=== PATIENT | male | born 1960 | race Caucasian/White ===

== ENCOUNTER → 2017-04-04 | Outpatient (CLI) | payer OTHER ==
[2015-09-17 17:45] VITALS: BP 164/93
[~2017-04-04] MED LIST: BUPIVACAINE MPF 0.5% 30 ML VIAL. ONE; LOSA1TAB12 PO; METF500T4 PO; MULTIVITAMIN PACK
== END | disposition home or self-care (01) ==
LOC: SURG 13:54
PROVIDERS: ATTEND Anesthesiology
DX: M79.1 Myalgia (principal); E11.9 Type 2 diabetes mellitus without complications; Z72.89 Other problems related to lifestyle; Z88.1 Allergy status to other antibiotic agents
CPT/HCPCS: 20553; 82947; J3490

== ENCOUNTER → 2017-04-11 | Outpatient (CLI) | payer OTHER ==
[2015-09-17 17:45] VITALS: BP 164/93
[~2017-04-11] MED LIST changes: -BUPIVACAINE MPF 0.5% 30 ML VIAL. ONE
--- NOTE | 2017-04-11 16:02 | RAD ---
CT of the thoracic spine without contrast, 04/11/2017: History: Left arm and leg radiculopathy Noncontrast scans were obtained with multiplanar reconstructions produced. There are mild scattered Schmorl's nodes in the lower thoracic spine. There are mild scattered marginal spurs. There are mild degenerative changes involving scattered facet joints in the lower thoracic spine. No fracture or destructive bony lesion is seen. Many of the posterior disc margins are not clearly defined. There is mild posterior disc protrusion just left of midline at what appears to be the T7-8 level. No high-grade central spinal stenosis or foraminal encroachment is evident at this level or other levels in the thoracic spine. The paraspinous soft tissues are unremarkable. IMPRESSION: Normal 1. Mild scattered degenerative changes. 2. Small posterior disc protrusion on the left at T7-8. 3. No acute thoracic spine abnormality is detected. CT of the lumbar spine without contrast, 04/11/2017: Noncontrast scans were obtained with multiplanar reconstructions produced. No fracture or destructive bony lesion is seen. At L1-2 and L2-3 there is no significant posterior disc bulge or protrusion. There are minimal degenerative changes involving the facet joints. The neural foramina are well maintained. At L3-4 there is only slight posterior annular bulging. There are minimal degenerative changes involving the facet joints. The central spinal canal and neural foramina are well maintained. At L4-5 there is moderate broad-based posterior disc bulging. There is mild posterior ligamentous thickening due to mild facet joint arthropathy. The combination of findings is causing borderline narrowing of the central spinal canal in a triangle configuration. There is mild inferior foraminal narrowing bilaterally. At L5-S1 there is a vacuum disc phenomena. There is a small posterior disc herniation on the left with inferior extension of this disc fragment. This effaces the anterior epidural fat along the anterior aspect of the thecal sac and the left S1 nerve root sleeve. There are mild degenerative changes involving the facet joints. The neural foramina are well maintained. Mild aortic calcific plaquing is noted. IMPRESSION: 1. Mild disc degeneration at L5-S1 with a small posterior disc herniation on the left. 2. Moderate posterior disc bulging at L4-5 in conjunction with mild facet joint arthropathy is causing borderline central spinal stenosis at that level. PQRS Compliance Statement: One or more of the following individualized dose reduction techniques were utilized for this examination: 1. Automated exposure control 2. Adjustment of the mA and/or kV according to patient size 3. Use of iterative reconstruction technique
== END | disposition home or self-care (01) ==
LOC: CT 09:37
PROVIDERS: ATTEND Anesthesiology Pain Medicine
DX: M51.14 Intervertebral disc disorders with radiculopathy, thoracic region (principal); M47.24 Other spondylosis with radiculopathy, thoracic region; M51.16 Intervertebral disc disorders with radiculopathy, lumbar region; M47.26 Other spondylosis with radiculopathy, lumbar region; M51.44 Schmorl's nodes, thoracic region; M12.88 Other specific arthropathies, not elsewhere classified, other specified site; M53.84 Other specified dorsopathies, thoracic region; I70.0 Atherosclerosis of aorta; Z87.891 Personal history of nicotine dependence
CPT/HCPCS: 72128; 72131

== ENCOUNTER → 2017-08-16 | Outpatient (CLI) | payer OTHER ==
[2015-09-17 17:45] VITALS: BP 164/93
[~2017-08-16] MED LIST changes: +IOHEXOL 300 MG/ML 75 ML VIAL. IV ONE
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
--- NOTE | 2017-08-16 10:27 | RAD ---
CT cervical spine without contrast 08/16/2017 Indication: Chronic neck pain. Comparison: None available. Technique: Multiple axial CT images of the cervical spine were obtained without intravenous contrast. Coronal and sagittal reformats are provided. Findings: There is reversal of the normal cervical lordosis. No significant spondylolisthesis is visualized. There is no acute fracture identified. The skull base is intact. Mastoid air cells are well aerated. Post surgical changes are identified involving the right parotid bed and right temporal mandibular joint. The atlantoaxial articulation is normal. Craniocervical junction is normal. C2-C3: Disc is normal in configuration. There is mild facet arthropathy. There is no uncovertebral joint disease. No neuroforaminal or spinal canal stenosis. C3-C4: There is minimal posterior disc osteophyte complex. There is mild to moderate facet arthropathy. Mild uncovertebral joint disease. Mild right neural foraminal stenosis. No spinal canal stenosis. C4-C5: The disc is normal in configuration. There is mild facet arthropathy. There is no uncovertebral joint disease. No neuroforaminal or spinal canal stenosis. C5-C6: There is minimal posterior disc osteophyte complex. There is moderate left and mild right facet arthropathy. There is mild uncovertebral joint disease. Mild left neuroforaminal stenosis. No spinal canal stenosis. C6-C7: There is minimal posterior disc bulge. There is mild to moderate facet arthropathy. No uncovertebral joint disease. No neural foraminal or spinal canal stenosis. C7-T1: Disc is normal in configuration. There is mild facet arthropathy. There is no uncovertebral joint disease. No neuroforaminal or spinal canal stenosis. Impression: Mild degenerative changes of the cervical spine are present, as detailed above. PQRS Compliance Statement: One or more of the following individualized dose reduction techniques were utilized for this examination: 1. Automated exposure control 2. Adjustment of the mA and/or kV according to patient size 3. Use of iterative reconstruction technique
--- NOTE | 2017-08-16 10:32 | RAD ---
CT left shoulder without contrast 08/16/2017 Indication: Left shoulder pain with decreased range of motion. Comparison: None available. Technique: Multiple axial CT images of the left shoulder are provided with contrast contrast. Coronal and sagittal reformats are provided. Findings: There is no acute fracture or dislocation. Left acromioclavicular joint is normal in appearance. The left glenohumeral joint is normal without significant joint space narrowing. No significant marginal osteophytosis. Bone mineralization is within normal limits. There is no significant muscle atrophy. There is no significant joint effusion. Evaluation of the tendons is limited by CT. However, no definite retracted tendon tear is visualized. There is no significant soft tissue abnormality. No mass is identified. No left axillary lymphadenopathy. Visualized portions of the left lung appear clear. Impression: No acute fracture or dislocation involving the left acromioclavicular and glenohumeral joints. PQRS Compliance Statement: One or more of the following individualized dose reduction techniques were utilized for this examination: 1. Automated exposure control 2. Adjustment of the mA and/or kV according to patient size 3. Use of iterative reconstruction technique
== END | disposition home or self-care (01) ==
LOC: CT 08:19
PROVIDERS: ATTEND Physician Assistant
DX: M47.892 Other spondylosis, cervical region (principal); M25.512 Pain in left shoulder; C07 Malignant neoplasm of parotid gland; R22.1 Localized swelling, mass and lump, neck; Z87.891 Personal history of nicotine dependence
CPT/HCPCS: 70491; 72125; 73200; Q9967

== ENCOUNTER → 2018-03-28 | Outpatient (CLI) | payer OTHER ==
[2015-09-17 17:45] VITALS: BP 164/93
[~2018-03-28] MED LIST changes: -IOHEXOL 300 MG/ML 75 ML VIAL. IV ONE; +METF500T16 PO; -METF500T4 PO
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
== END | disposition home or self-care (01) ==
LOC: CT 14:26
PROVIDERS: ATTEND Family Medicine
DX: R42 Dizziness and giddiness (principal); E11.65 Type 2 diabetes mellitus with hyperglycemia; I10 Essential (primary) hypertension; Z82.49 Family history of ischemic heart disease and other diseases of the circulatory system; Z83.3 Family history of diabetes mellitus; Z80.42 Family history of malignant neoplasm of prostate; Z79.84 Long term (current) use of oral hypoglycemic drugs
CPT/HCPCS: 70450

== ENCOUNTER 2018-05-29 16:24 | Emergency (ER) | payer OTHER ==
[~2018-05-29] VITALS: Ht 180.3 cm; Wt 83.9 kg
[2018-05-29] MEDS ORDERED: IV NORMAL SALINE 1,000ML 1,000 ML IV ONE (17:00)
--- NOTE | 2018-05-29 17:07 | PHYS DOC ---
Past History Past Medical History: Diabetes, Other Past Surgical History: Other Drug Use: Cocaine, Marijuana, Other Adult General Chief Complaint Chief Complaint: DIZZY/LIGHT HEADED HPI HPI 57-year-old male presents with dizziness that started around 1:30 PM. Patient was just sitting on the couch listening to music when this started. He describes the dizziness as a lightheaded, off balance feeling. He believes it is made worse with standing up. He denies a history of dizziness. He denies change in hearing. He is never been diagnosed with vertigo. Patient denies nausea, vomiting, chest pain, shortness of breath, dysuria, urinary frequency. The patient is diabetic. His blood sugars have been in the 300s. He is on Lantus , metformin, and Tradjenta. He is not on a short acting insulin. He has had no recent changes in his medications. He denies fevers or chills. Review of Systems Review of Systems Constitutional: Denies fever or chills [] Eyes: Denies change in visual acuity, redness, or eye pain [] HENT: Denies nasal congestion or sore throat [] Respiratory: Denies cough or shortness of breath [] Cardiovascular: No additional information not addressed in HPI [] GI: Denies abdominal pain, nausea, vomiting, bloody stools or diarrhea [] : Denies dysuria or hematuria [] Musculoskeletal: Denies back pain or joint pain [] Integument: Denies rash or skin lesions [] Neurologic: Dizziness. Denies headache, focal weakness or sensory changes. [] Endocrine: Denies polyuria or polydipsia [] All other systems were reviewed and found to be within normal limits, except as documented in this note. Current Medications Current Medications Current Medications Medications (Trade) Dose Ordered Sig/Uzma Start Time Stop Time Status Last Admin Dose Admin Sodium Chloride 1,000 ml @ 1,000 mls/hr 1X ONCE 05/29/18 17:00 05/29/18 17:59 Allergies Allergies Allergies Uncoded Allergies Type Severity Reaction Last Updated Verified Unknown antibiotic Allergy Unknown 09/17/15 Physical Exam Physical Exam Constitutional: Well developed, well nourished, no acute distress, non-toxic appearance. [] HENT: Normocephalic, atraumatic, bilateral external ears normal, oropharynx moist, no oral exudates, nose normal. [] Eyes: PERRLA, EOMI, conjunctiva normal, no discharge. [] Neck: Normal range of motion, no tenderness, supple, no stridor. [] Cardiovascular:Heart rate regular rhythm, no murmur [] Lungs & Thorax: Bilateral breath sounds clear to auscultation [] Abdomen: Bowel sounds normal, soft, no tenderness, no masses, no pulsatile masses. [] Skin: Surgical scar inferior to the right parotid gland[] Back: No tenderness, no CVA tenderness. [] Extremities: No tenderness, no cyanosis, no clubbing, ROM intact, no edema. [] Neurologic: Alert and oriented X 3, normal motor function, normal sensory function, no focal deficits noted. [] Psychologic: Affect normal, judgement normal, mood normal. [] EKG EKG Sinus rhythm, rate 74, normal axis, no ST elevations or depressions, prolonged QTC.[] Radiology/Procedures Radiology/Procedures [] Impressions: Examination: CT HEAD WO CONTRAST History: DIZZINESS Comparison/Correlation: None Findings: Axial images of the head were obtained without contrast. Mild atrophy is present. No intracranial hemorrhage, midline shift, or mass effect. Shrapnel is identified involving the right temporomandibular joint region. Impression: No intracranial hemorrhage. Electronically signed by: Abhijeet Cameron MD (05/29/2018 5:50 PM) [facility] DICTATED AND SIGNED BY: ABHIJEET CAMERON MD DATE: 05/29/18 1749 CC: ADALBERTO COVARRUBIAS DO; MONI GOMEZ MD ~ Course & Med Decision Making Course & Med Decision Making Pertinent Labs and Imaging studies reviewed. (See chart for details) Patient's labs are significant for a slightly elevated white count and a blood sugar 190. His urinalysis is pending. His head CT is unremarkable. I will treat him with 30 mg of Toradol for his headache. I am signing the patient out to Dr. Barnard at 1805. [] Dragon Disclaimer Dragon Disclaimer This electronic medical record was generated, in whole or in part, using a voice recognition dictation system. Departure Departure: Referrals: MONI GOMEZ MD (PCP) ADALBERTO COVARRUBIAS DO May 29, 2018 17:07
[2018-05-29 17:09] LABS: BASO # 0.1 x10^3/uL (0.0-0.2); BASO % 1 % (0-3); EOS % 0 % (0-3); HEMATOCRIT 47.4 % (39.0-53.0); HEMOGLOBIN 16.7 g/dL (13.0-17.5); LYMPH # 2.7 x10^3/uL (1.0-4.8); LYMPH % 21 % (24-48); MEAN CORPUSCULAR HEMOGLOBIN 31 pg (25-35); MEAN CORPUSCULAR HGB CONC 35 g/dL (31-37); MEAN CORPUSCULAR VOLUME 89 fL (79-100); MONO # 1.3 x10^3/uL (0.0-1.1); MONO % 10 % (0-9); NEUT % 69 % (31-73); PLATELET COUNT 255 x10^3/uL (140-400); RED BLOOD COUNT 5.33 x10^6/uL (4.30-5.70); RED CELL DISTRIBUTION WIDTH 13.2 % (11.5-14.5); WHITE BLOOD COUNT 13.1 x10^3/uL (4.0-11.0)
[2018-05-29 17:19] LABS: CALCIUM 9.2 mg/dL (8.5-10.1); POTASSIUM 3.4 mmol/L (3.5-5.1); TOTAL BILIRUBIN 0.6 mg/dL (0.2-1.0); TOTAL PROTEIN 7.9 g/dL (6.4-8.2)
--- NOTE | 2018-05-29 17:54 | RAD ---
Examination: CT HEAD WO CONTRAST History: DIZZINESS Comparison/Correlation: None Findings: Axial images of the head were obtained without contrast. Mild atrophy is present. No intracranial hemorrhage, midline shift, or mass effect. Shrapnel is identified involving the right temporomandibular joint region. Impression: No intracranial hemorrhage. Electronically signed by: Abhijeet Donis MD (05/29/2018 5:50 PM) [facility]
--- NOTE | 2018-05-29 17:55 | EKG ---
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
[2018-05-29] MEDS ORDERED: KETOROLAC 30 MG/ML VIAL. IV ONE (18:15)
[2018-05-29 18:43] LABS: BARBITURATES NEG (NEG); BENZODIAZEPINES NEG (NEG); CANNABINOIDS POS (NEG); COCAINE NEG (NEG); METHADONE NEG (NEG); OPIATES NEG (NEG); PHENCYCLIDINE NEG (NEG)
[2018-05-29 18:44] LABS: AMPHETAMINE/METHAMPHETAMINE NEG (NEG)
[2018-05-29 18:49] LABS: BILIRUBIN,URINE NEG (NEG); CLARITY,URINE CLEAR; COLOR,URINE STRAW; GLUCOSE,URINE 100 mg/dL (NEG)
[2018-05-29 18:50] LABS: BACTERIA,URINE 0 /HPF (0-FEW); NITRITE,URINE NEG (NEG); RBC,URINE OCC /HPF (0-2); UROBILINOGEN,URINE 0.2 mg/dL (0.2 mg/dL)
[2018-05-29 19:00] VITALS: BP 166/86
== END 2018-05-29 19:06 | disposition home or self-care (01) ==
LOC: ER 16:24
DX: R42 Dizziness and giddiness (principal); R51 Headache; D72.829 Elevated white blood cell count, unspecified; E11.9 Type 2 diabetes mellitus without complications; Z88.1 Allergy status to other antibiotic agents
CPT/HCPCS: 36415; 70450; 80053; 80307; 81001; 84484; 85025; 93005; 96361; 96374; 99284; J1885; J7030

== ENCOUNTER 2019-07-29 09:45 | Emergency (ER) | payer OTHER ==
[~2019-07-29] VITALS: Ht 177.8 cm; Wt 83.0 kg
[2019-07-29 10:12] LABS: BASO % 0 % (0-3); EOS # 0.1 x10^3/uL (0.0-0.7); EOS % 0 % (0-3); HEMATOCRIT 51.6 % (39.0-53.0); HEMOGLOBIN 17.7 g/dL (13.0-17.5); LYMPH # 2.3 x10^3/uL (1.0-4.8); LYMPH % 19 % (24-48); MEAN CORPUSCULAR HEMOGLOBIN 32 pg (25-35); MEAN CORPUSCULAR HGB CONC 34 g/dL (31-37); MEAN CORPUSCULAR VOLUME 93 fL (79-100); MONO # 1.2 x10^3/uL (0.0-1.1); MONO % 10 % (0-9); NEUT # 8.6 x10^3uL (1.8-7.7); NEUT % 70 % (31-73); PLATELET COUNT 243 x10^3/uL (140-400); RED BLOOD COUNT 5.55 x10^6/uL (4.30-5.70); RED CELL DISTRIBUTION WIDTH 12.8 % (11.5-14.5); WHITE BLOOD COUNT 12.2 x10^3/uL (4.0-11.0)
[2019-07-29 10:21] LABS: CALCIUM 9.1 mg/dL (8.5-10.1); CREATININE 0.9 mg/dL (0.7-1.3); GFR 86.7; POTASSIUM 3.5 mmol/L (3.5-5.1)
--- NOTE | 2019-07-29 10:21 | RAD ---
EXAM: Chest, single view. HISTORY: Chest pain. COMPARISON: None. FINDINGS: A frontal view of the chest is obtained. There is no infiltrate, pleural effusion or pneumothorax. The heart is normal in size. IMPRESSION: No acute pulmonary finding. Electronically signed by: Angle Tipton MD (07/29/2019 10:18 AM) [facility] [place]
[2019-07-29 10:33] LABS: ALBUMIN 4.2 g/dL (3.4-5.0); MAGNESIUM 1.9 mg/dL (1.8-2.4); TOTAL BILIRUBIN 0.7 mg/dL (0.2-1.0); TOTAL PROTEIN 8.3 g/dL (6.4-8.2)
[2019-07-29] MEDS ORDERED: ASPIRIN ENTERIC COATED 325 MG TABLET.DR. PO ONE (10:45)
--- NOTE | 2019-07-29 10:47 | PHYS DOC ---
Past History Past Medical History: Depression, Diabetes, Hypertension Past Surgical History: Other Additional Past Surgical Histo: TUMOR REMOVAL Alcohol Use: Heavy Drug Use: Cocaine, Marijuana, Other Adult General Chief Complaint Chief Complaint: CHEST PAIN HPI HPI Patient is a 58-year-old male who presented to ER today for evaluation of substernal chest pain that woke him up yesterday morning about 7 AM. The pain subsided during the day but continued to have pain so he went to see his doctor this morning who then sent him to the ER here for evaluation. Patient is a smoker, history of hypertension and diabetes. Patient has family history of heart disease, his father had heart attack and Bypass. HE was given nitroglycerin in the clinic but the pain did not improve so he came here. Patient denies any recent travel or operation. Patient had no previous history of heart disease, no history of blood clot disorder. Denies any rectal bleeding or vomiting blood. At this time patient said the pain is pressure-like, no nausea, no trouble breathing. Review of Systems Review of Systems aLL OTHER ros IS NEGATIVE UNLESS OTHERWISE NOTED IN hpi POSITIVE FOR CHEST PAIN, NO SHORTNESS OF AIR Current Medications Current Medications Current Medications Medications (Trade) Dose Ordered Sig/Uzma Start Time Stop Time Status Last Admin Dose Admin Aspirin (Aspirin Enteric Coated) 325 mg 1X ONCE 07/29/19 10:45 07/29/19 10:46 07/29/19 10:22 325 MG Allergies Allergies Allergies Uncoded Allergies Type Severity Reaction Last Updated Verified Unknown antibiotic Allergy Unknown 09/17/15 Physical Exam Physical Exam See above Constitutional: Well developed, well nourished, no acute distress, non-toxic appearance. [] HENT: Normocephalic, atraumatic, bilateral external ears normal, oropharynx moist, no oral exudates, nose normal. [] Eyes: PERRLA, EOMI, conjunctiva normal, no discharge. [] Neck: Normal range of motion, no tenderness, supple, no stridor. [] Cardiovascular:Heart rate regular rhythm, no murmur [] Lungs & Thorax: Bilateral breath sounds clear to auscultation [] Abdomen: Bowel sounds normal, soft, no tenderness, no masses, no pulsatile masses. [] Skin: Warm, dry, no erythema, no rash. [] Back: No tenderness, no CVA tenderness. [] Extremities: No tenderness, no cyanosis, no clubbing, ROM intact, no edema. [] Neurologic: Alert and oriented X 3, normal motor function, normal sensory function, no focal deficits noted. [] Psychologic: Affect normal, judgement normal, mood normal. [] Current Patient Data Vital Signs Vital Signs Date Time Temp Pulse Resp B/P (MAP) Pulse Ox O2 Delivery O2 Flow Rate FiO2 07/29/19 10:26 82 20 157/80 (105) 97 Room Air 07/29/19 09:55 98.3 Lab Results Laboratory Tests Test 07/29/19 09:48 White Blood Count 12.2 x10^3/uL (4.0-11.0) H Red Blood Count 5.55 x10^6/uL (4.30-5.70) Hemoglobin 17.7 g/dL (13.0-17.5) H Hematocrit 51.6 % (39.0-53.0) Mean Corpuscular Volume 93 fL (79-100) Mean Corpuscular Hemoglobin 32 pg (25-35) Mean Corpuscular Hemoglobin Concent 34 g/dL (31-37) Red Cell Distribution Width 12.8 % (11.5-14.5) Platelet Count 243 x10^3/uL (140-400) Neutrophils (%) (Auto) 70 % (31-73) Lymphocytes (%) (Auto) 19 % (24-48) L Monocytes (%) (Auto) 10 % (0-9) H Eosinophils (%) (Auto) 0 % (0-3) Basophils (%) (Auto) 0 % (0-3) Neutrophils # (Auto) 8.6 x10^3uL (1.8-7.7) H Lymphocytes # (Auto) 2.3 x10^3/uL (1.0-4.8) Monocytes # (Auto) 1.2 x10^3/uL (0.0-1.1) H Eosinophils # (Auto) 0.1 x10^3/uL (0.0-0.7) Basophils # (Auto) 0.0 x10^3/uL (0.0-0.2) Prothrombin Time 10.6 SEC (9.4-11.4) Prothrombin Time INR 1.0 (0.9-1.1) Activated Partial Thromboplast Time 26 SEC (23-33) Sodium Level 142 mmol/L (136-145) Potassium Level 3.5 mmol/L (3.5-5.1) Chloride Level 103 mmol/L (98-107) Carbon Dioxide Level 28 mmol/L (21-32) Anion Gap 11 (6-14) Blood Urea Nitrogen 12 mg/dL (8-26) Creatinine 0.9 mg/dL (0.7-1.3) Estimated GFR (Cockcroft-Gault) 86.7 BUN/Creatinine Ratio 13 (6-20) Glucose Level 180 mg/dL (70-99) H Calcium Level 9.1 mg/dL (8.5-10.1) Magnesium Level 1.9 mg/dL (1.8-2.4) Total Bilirubin 0.7 mg/dL (0.2-1.0) Aspartate Amino Transferase (AST) 32 U/L (15-37) Alanine Aminotransferase (ALT) 29 U/L (16-63) Alkaline Phosphatase 52 U/L (46-116) Troponin I Quantitative 1.579 ng/mL (0-0.055) H BR-Pau-T-Type Natriuretic Peptide 901 pg/mL (0-124) H Total Protein 8.3 g/dL (6.4-8.2) H Albumin 4.2 g/dL (3.4-5.0) Albumin/Globulin Ratio 1.0 (1.0-1.7) Lipase 168 U/L (73-393) EKG EKG EKG was done at 0956, rate of 88 BPM, T WAVE INVERSION IN V2, V3, V4, V5, SUSPECT ST ELEVATION V2, V3., SINUS RHYTHM. Radiology/Procedures Radiology/Procedures [][place] [address] IMAGING REPORT Signed PATIENT: EMI SAMUEL LACCOUNT: [id number] : 1960 LOCATION: ER AGE: 58 SEX: M EXAM STATUS: REG ER ORD. PHYSICIAN: MONI CARDONA DO REASON: CHEST PAIN, SHORTNESS OF BREATH PROCEDURE: PORTABLE CHEST 1V EXAM: Chest, single view. HISTORY: Chest pain. COMPARISON: None. FINDINGS: A frontal view of the chest is obtained. There is no infiltrate, pleural effusion or pneumothorax. The heart is normal in size. IMPRESSION: No acute pulmonary finding. Electronically signed by: Angle Morrell MD (07/29/2019 10:18 AM) [facility] [place]ATED AND SIGNED BY: ANGLE MORRELL MD DATE: 07/29/19 1018 CC: MONI GOMEZ MD; MONI CARDONA DO ~ Course & Med Decision Making Course & Med Decision Making Pertinent Labs and Imaging studies reviewed. (See chart for details) Patient was found to have NSTEMI, STILL HAVING SOME CHEST PRESSURE, DISCUSSED WITH DR. BARAJAS, MANAGER RO[facility] AT [facility], WOULD LIKE TO TAKE HIM TO [facility] URG[facility]. DR. EDMOND AGREED TO ACCEPT PATIENT THERE. PATIENT WILL BE TAKEN BY EMS URGENTLY TO THE [facility] AT [facility]. PATIENT WAS GIVEN HEPARIN IV BOLUS 4000 UNITS AND DRIP. HE WAS GIVEN ASPIRIN IN THE ER ALSO. HE IS NO ACUTE DISTRESS, STABLE AT TIME OF TRANSPORT. Critical care time was [45] minutes exclusive of procedures. Dragon Disclaimer Dragon Disclaimer This electronic medical record was generated, in whole or in part, using a voice recognition dictation system. Departure Departure: Impression: Primary Impression: NSTEMI (non-ST elevated myocardial infarction) Disposition: XFER SHT-TRM HOSP (TRANSFERRED TO [facility], ACCEPTED BY DR. EDMOND. ) Condition: STABLE Referrals: MONI GOMEZ MD (PCP) MONI CARDONA DO Jul 29, 2019 10:47
[2019-07-29 10:57] VITALS: BP 152/78
[2019-07-29] MEDS ORDERED: HEPARIN for IV BOLUS 10,000 UNIT/10 ML VIAL. IV PRN (11:00)
[2019-07-29] MEDS ORDERED: HEPARIN 25,000UTS/250ML PREMIX 250 ML IV PRN (11:00)
[2019-07-29] MEDS ORDERED: HEPARIN for IV BOLUS 10,000 UNIT/10 ML VIAL. IV ONE (11:00)
[2019-07-29] MEDS ORDERED: HEPARIN for SUB-Q USE 5,000 UNIT/ML VIAL. SQ ONE (11:01)
--- NOTE | 2019-07-29 13:58 | EKG ---
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
== END 2019-07-29 11:43 | disposition short-term general hospital (02) ==
LOC: ER 09:45
DX: I21.4 Non-ST elevation (NSTEMI) myocardial infarction (principal); E11.9 Type 2 diabetes mellitus without complications; I10 Essential (primary) hypertension; Z88.1 Allergy status to other antibiotic agents
CPT/HCPCS: 36415; 71045; 80053; 83690; 83735; 83880; 84484; 85025; 85610; 85730; 93005; 96365; 99285

== ENCOUNTER → 2019-07-31 | Outpatient (CLI) | payer OTHER ==
[2019-07-29 10:57] VITALS: BP 152/78
--- NOTE | 2019-07-31 10:50 | RAD ---
EXAM: Right upper extremity sonogram. HISTORY: Palpable lump. TECHNIQUE: Sonographic imaging of the right upper extremity at the site of palpable concern was performed. COMPARISON: None. FINDINGS: There is soft tissue edema solid distal to the antecubital fossa at the site of palpable concern at the site of prior peripheral venous catheter placement. The cephalic vein is patent. No hematoma is seen. IMPRESSION: Soft tissue edema within the proximal forearm at the site of palpable concern and prior peripheral catheter placement. No hematoma or venous thrombosis is seen. Electronically signed by: Angle Tipton MD (07/31/2019 10:47 AM) [facility] [place]
== END | disposition home or self-care (01) ==
LOC: US 09:58
PROVIDERS: ATTEND Nurse Practitioner Adult Health
DX: M79.81 Nontraumatic hematoma of soft tissue (principal); R60.0 Localized edema
CPT/HCPCS: 76881

== ENCOUNTER 2020-07-01 06:08 | Emergency (ER) | payer OTHER ==
[~2020-07-01] VITALS: Ht 177.8 cm; Wt 72.4 kg
[2020-07-01] MEDS ORDERED: IV NORMAL SALINE 1,000ML 1,000 ML IV ONE (07:00)
[2020-07-01] MEDS ORDERED: ASPIRIN 325 MG TABLET PO ONE (07:00)
[2020-07-01] MEDS ORDERED: FAMOTIDINE 20 MG/2 ML VIAL IVP ONE (07:00)
[2020-07-01 07:33] LABS: BASO % 0 % (0-3); EOS # 0.1 x10^3/uL (0.0-0.7); EOS % 1 % (0-3); HEMATOCRIT 46.6 % (39.0-53.0); HEMOGLOBIN 16.5 g/dL (13.0-17.5); LYMPH # 1.8 x10^3/uL (1.0-4.8); LYMPH % 20 % (24-48); MEAN CORPUSCULAR HEMOGLOBIN 32 pg (25-35); MEAN CORPUSCULAR HGB CONC 35 g/dL (31-37); MEAN CORPUSCULAR VOLUME 90 fL (79-100); MONO # 0.9 x10^3/uL (0.0-1.1); MONO % 10 % (0-9); NEUT # 6.5 x10^3uL (1.8-7.7); NEUT % 69 % (31-73); PLATELET COUNT 201 x10^3/uL (140-400); RED BLOOD COUNT 5.17 x10^6/uL (4.30-5.70); RED CELL DISTRIBUTION WIDTH 12.8 % (11.5-14.5); WHITE BLOOD COUNT 9.3 x10^3/uL (4.0-11.0)
[2020-07-01 07:34] LABS: CALCIUM 8.6 mg/dL (8.5-10.1); GFR 76.5; POTASSIUM 3.3 mmol/L (3.5-5.1)
[2020-07-01 07:50] LABS: ALBUMIN 3.7 g/dL (3.4-5.0); MAGNESIUM 1.5 mg/dL (1.8-2.4); TOTAL BILIRUBIN 1.3 mg/dL (0.2-1.0); TOTAL PROTEIN 7.4 g/dL (6.4-8.2)
[2020-07-01 07:59] LABS: INFLUENZA A PATIENT NEGATIVE (NEGATIVE); INFLUENZA B PATIENT NEGATIVE (NEGATIVE)
[2020-07-01] MEDS ORDERED: POTASSIUM CHLORIDE 20 MEQ TABLET.ER. PO ONE (08:15)
[2020-07-01] MEDS ORDERED: MAGNESIUM SULFATE 2GM 50 ML IV ONE (08:15)
[2020-07-01] MEDS ORDERED: IOHEXOL 350 MG/ML 100 ML VIAL. IV ONE (09:00)
--- NOTE | 2020-07-01 09:10 | PHYS DOC ---
Past History Past Medical History: CAD, Depression, Diabetes, Hypertension, NC Past Surgical History: Other Additional Past Surgical Histo: TUMOR REMOVAL, cardiac stent Smoking: Cigarettes Alcohol Use: Heavy Drug Use: Cocaine, Marijuana, Other General Adult EDM: Chief Complaint: NAUSEA/VOMITING/DIARRHEA HPI: HPI: 59-year-old male presents with report of nausea, midsternal chest discomfort, and diarrhea that started 3 days ago. Patient denies known sick contacts. Denies exposure to COVID-19. Patient does report some associated fatigue. Denies leg swelling or calf tenderness. Denies trauma. Review of Systems: Review of Systems: Constitutional: Denies fever or chills; reports fatigue Eyes: Denies redness or eye pain HENT: Denies nasal congestion or sore throat Respiratory: Denies cough or shortness of breath Cardiovascular: Reports chest pain; denies palpitations GI: Denies abdominal pain or vomiting; reports nausea and diarrhea : Denies dysuria or hematuria Musculoskeletal: Denies back pain or joint pain Integument: Denies rash or skin lesions Neurologic: Denies headache, focal weakness or sensory changes Complete systems were reviewed and found to be within normal limits, except as documented in this note. Current Medications: Current Meds: Current Medications Medications (Trade) Dose Ordered Sig/Uzma Start Time Stop Time Status Last Admin Dose Admin Aspirin (Jose Aspirin) 325 mg 1X ONCE 07/01/20 07:00 07/01/20 07:01 DC 07/01/20 07:14 325 MG Famotidine (Pepcid Vial) 20 mg 1X ONCE 07/01/20 07:00 07/01/20 07:01 DC 07/01/20 07:11 20 MG Iohexol (Omnipaque 350 Mg/ml) 100 ml 1X ONCE 07/01/20 09:00 07/01/20 09:05 DC Magnesium Sulfate 50 ml @ 25 mls/hr 1X ONCE 07/01/20 08:15 07/01/20 10:14 07/01/20 08:56 25 MLS/HR Potassium Chloride (Klor-Con) 40 meq 1X ONCE 07/01/20 08:15 07/01/20 08:29 DC 07/01/20 08:54 40 MEQ Sodium Chloride 1,000 ml @ 1,000 mls/hr 1X ONCE 07/01/20 07:00 07/01/20 07:59 DC 07/01/20 07:08 1,000 MLS/HR Allergies: Allergies: Allergies Uncoded Allergies Type Severity Reaction Last Updated Verified Unknown antibiotic Allergy Unknown 09/17/15 Physical Exam: PE: Constitutional: Well developed, well nourished, no acute distress, non-toxic appearance HENT: Normocephalic, atraumatic Eyes: PERRL, EOMI, conjunctiva normal, no discharge Neck: Normal range of motion, no tenderness, supple Lungs & Thorax: No respiratory distress, equal chest rise and fall Abdomen: Soft, no tenderness, no guarding/rebound tenderness/distention Skin: Warm, dry, no erythema, no rash Back: No tenderness, no CVA tenderness Extremities: No tenderness, ROM intact, no edema Neurologic: Alert and oriented X 3, no focal deficits noted Psychologic: Affect normal, judgment normal Current Patient Data: Labs: Laboratory Tests Test 07/01/20 06:50 07/01/20 07:02 07/01/20 07:43 White Blood Count 9.3 x10^3/uL (4.0-11.0) Red Blood Count 5.17 x10^6/uL (4.30-5.70) Hemoglobin 16.5 g/dL (13.0-17.5) Hematocrit 46.6 % (39.0-53.0) Mean Corpuscular Volume 90 fL (79-100) Mean Corpuscular Hemoglobin 32 pg (25-35) Mean Corpuscular Hemoglobin Concent 35 g/dL (31-37) Red Cell Distribution Width 12.8 % (11.5-14.5) Platelet Count 201 x10^3/uL (140-400) Neutrophils (%) (Auto) 69 % (31-73) Lymphocytes (%) (Auto) 20 % (24-48) L Monocytes (%) (Auto) 10 % (0-9) H Eosinophils (%) (Auto) 1 % (0-3) Basophils (%) (Auto) 0 % (0-3) Neutrophils # (Auto) 6.5 x10^3uL (1.8-7.7) Lymphocytes # (Auto) 1.8 x10^3/uL (1.0-4.8) Monocytes # (Auto) 0.9 x10^3/uL (0.0-1.1) Eosinophils # (Auto) 0.1 x10^3/uL (0.0-0.7) Basophils # (Auto) 0.0 x10^3/uL (0.0-0.2) Sodium Level 137 mmol/L (136-145) Potassium Level 3.3 mmol/L (3.5-5.1) L Chloride Level 100 mmol/L (98-107) Carbon Dioxide Level 25 mmol/L (21-32) Anion Gap 12 (6-14) Blood Urea Nitrogen 13 mg/dL (8-26) Creatinine 1.0 mg/dL (0.7-1.3) Estimated GFR (Cockcroft-Gault) 76.5 BUN/Creatinine Ratio 13 (6-20) Glucose Level 195 mg/dL (70-99) H Calcium Level 8.6 mg/dL (8.5-10.1) Magnesium Level 1.5 mg/dL (1.8-2.4) L Total Bilirubin 1.3 mg/dL (0.2-1.0) H Aspartate Amino Transferase (AST) 14 U/L (15-37) L Alanine Aminotransferase (ALT) 18 U/L (16-63) Alkaline Phosphatase 53 U/L (46-116) Creatine Kinase 86 U/L (39-308) Creatine Kinase MB (Mass) 1.2 ng/mL (0.0-3.6) Creatine Kinase MB Relative Index 1.4 % (0-4) Troponin I Quantitative < 0.017 ng/mL (0-0.055) AZ-Xsb-X-Type Natriuretic Peptide 98 pg/mL (0-124) Total Protein 7.4 g/dL (6.4-8.2) Albumin 3.7 g/dL (3.4-5.0) Albumin/Globulin Ratio 1.0 (1.0-1.7) Lipase 102 U/L (73-393) Influenza Type A (Rapid) Negative (NEGATIVE) Influenza Type B (Rapid) Negative (NEGATIVE) Prothrombin Time 11.2 SEC (9.4-11.4) Prothrombin Time INR 1.1 (0.9-1.1) Activated Partial Thromboplast Time 25 SEC (23-33) D-Dimer (Karen) 1.01 mg/L (0.00-0.50) H Vital Signs: Vital Signs Date Time Temp Pulse Resp B/P (MAP) Pulse Ox O2 Delivery O2 Flow Rate FiO2 07/01/20 06:08 98.6 103 16 187/113 (137) 98 Room Air EKG: EKG: @0655 NSR at 87bpm, NO ST elevation, QRS 80ms, QT/QTc 368/443ms Radiology/Procedures: Radiology/Procedures: PROCEDURE: CT ANGIOGRAPHY CHEST CTA CHEST INDICATION: SOA, elevated d-dimer, eval for PE Comparison: Radiograph 07/29/2019. TECHNIQUE: Following the uneventful administration of intravenous contrast, 100 cc Omnipaque 350, axial CT sections were obtained through the lungs and upper abdomen. Multiplanar reconstructions and MIP images were obtained. PQRS compliance statement: One or more of the following individualized dose reduction techniques were utilized for this examination: 1. Automated exposure control 2. Adjustment of the mA and/or kV according to patient size 3. Use of iterative reconstruction technique FINDINGS: Pulmonary arteries: No evidence of pulmonary thromboembolic disease. Lungs and Airways: No pulmonary mass or consolidation. No abnormality of the central airways. Pleura: The pleural spaces are normal. Heart and Mediastinum: The visualized thyroid is normal in size and attenuation. No axillary or supraclavicular lymphadenopathy. No mediastinal, hilar or retrocrural lymphadenopathy. Normal cardiac size. Coronary artery stent. No pericardial effusion. Normal caliber thoracic aorta. Abdomen: Cholelithiasis. Bones and Soft Tissues: The visualized bones and chest wall soft tissues are within normal limits. IMPRESSION: 1. No evidence of pulmonary thromboembolic disease. 2. No pulmonary mass or consolidation. Electronically signed by: Theron Saldaña MD (07/01/2020 9:36 AM) [id number] Heart Score: HEART Score for Chest Pain: HEART Score for Chest Pain Response (Comments) Value History Slighlty/Non-Suspicious 0 ECG Normal 0 Age >45 - < 65 1 Risk Factors >3 Risk Factors or Hx CAD 2 Troponin < Normal Limit 0 Total 3 Risk Factors: Risk Factors: DM, Current or recent (<one month) smoker, HTN, HLP, family histo ry of CAD, obesity. Risk Scores: Score 0 - 3: 2.5% MACE over next 6 weeks - Discharge Home Score 4 - 6: 20.3% MACE over next 6 weeks - Admit for Clinical Observation Score 7 - 10: 72.7% MACE over next 6 weeks - Early Invasive Strategies Course & Med Decision Making: Course & Med Decision Making Pertinent Labs and Imaging studies reviewed. (See chart for details) Patient presents with report of midsternal chest discomfort which he attributes to gastritis with associated nausea and diarrhea. Reports has been ongoing for the past 3 days. Reports associated fatigue. Cannot fully exclude COVID-19. COVID-[address] COVID-19 testing pending. Labs obtained and posted to chart. Troponin within normal limits. D-dimer stable. Hypokalemia and hypomagnesemia addressed. Chest x-ray stable. Symptomatic treatment provided with IV fluid hydration. Patient stable for discharge with outpatient follow-up with PCP. Discussed findings and plan with patient and family, who acknowledge understanding and agreement. COVID-19 CRITERIA: The patient was evaluated during the global COVID-19 pandemic, and that diagnosis was suspected/considered upon their initial presentation. Their evaluation, treatment and testing was consistent with current guidelines for patients who present with complaints or symptoms that may be related to COVID-19. Alejandro Disclaimer: Alejandro Disclaimer: This electronic medical record was generated, in whole or in part, using a voice recognition dictation system. Departure Departure: Impression: Primary Impression: Atypical chest pain Additional Impressions: Hypomagnesemia Hypokalemia Suspected 2019 novel coronavirus infection Nausea Diarrhea Qualified Codes: R19.7 - Diarrhea, unspecified Disposition: 01 DC HOME SELF CARE/HOMELESS Condition: STABLE Referrals: MONI GOMEZ MD (PCP) DANE RENE MD Patient Instructions: Chest Pain (Nonspecific), [id number], Gastritis, Adult, Vuas-yd-Fjza, Hypertension, Rnrc-[id number], Hypokalemia, Hypomagnesemia, Potassium Content of Foods Additional Instructions: You have been tested for or diagnosed with COVID-19. It is an infection caused by a new type of coronavirus. COVID-19 will cause cold-like or mild flu symptoms in most. It can cause more severe symptoms like problems breathing in some. There is no treatment for COVID-19. The body will clear the infection over time. Self-care will help to ease discomfort. Steps to Take: Self-Care Rest as needed. Healthy habits may help you feel better. Steps include: Choose healthy foods including fruits and vegetables. Drink water throughout the day. Get plenty of sleep each night. If you smoke, try to quit. It may ease breathing. Avoid alcohol. Keep Others Healthy The virus can spread to others. Droplets are released every time you sneeze or cough. The droplets can get into the mouth, nose, or eyes of people near you and lead to infection. To lower the chances of spreading COVID-19 to others: Stay at home until your doctor has said it is safe to leave. If you tested positive this will mean staying isolated until both of the following are true: At least 7 days have passed since the start of illness. You are free of fever for at least 72 hours without the use of medicine. During this time: - Avoid public areas, events, or transportation. Do not return to work or school until your doctor has said it is safe to do so. - Call ahead if you need to go to a medical center. Let them know you may have COVID-19. It will help them guide you where to go. They may also ask you to wear a facemask when you come to the office. - If you call for emergency medical services, let them know you may have COVID- 19. While at home: - Try to avoid close contact with others. Stay about 6 feet away. - If possible, spend most of your time in a separate room from others. - Use a face mask if you will be in close contact with others such as sharing a room or vehicle. - Have someone wipe down common surfaces in the home. Use household drilling foreman every day on areas like doorknobs, counters, or sinks. - Cough or sneeze into a tissue. Throw the tissue away right after use. If a tissue is not available, cough or sneeze into your elbow. - Wash your hands often. Wash them after sneezing or coughing. Use soap and water and wash for at least 20 seconds. Alcohol based hand furniture cleaner can be used if soap and water is not available. - Do not prepare food for others. Avoid sharing personal items like forks, spoons, or toothbrushes. - Avoid close contact with pets while you are sick. There is no evidence of the virus passing to pets. This is a safety step until more is known about this virus. Isolation can be frustrating. Social interaction can help. Keep in touch with friends and family through phone and tech options. You can still interact with others in your home, just keep a safe distance of about 6 feet. Follow-up: Your doctors office will check in with you to see if there are any changes in your health. You may be asked to keep track of symptoms to share with them. They will also let you know when you are clear to be in public again. Problems to Look Out For: Contact your doctor if your recovery is not going as you expect. Get emergency care if you have problems such as: - Trouble breathing - Nonstop chest pain or pressure - Changes in awareness, confusion, or problems waking - Lips or face have bluish color - Worsening of symptoms If you think you have an emergency, call for emergency medical services right away. As taken from [facility] Famotidine (PEPCID) 20 Mg Tablet 1 TAB PO BID for Gastrtitis, #40 TAB Prov: ELIF ALEXANDER DO 07/01/20 Ondansetron (ONDANSETRON ODT) 4 Mg Tab.rapdis 1 TAB PO PRN Q6-8HRS PRN for NAUSEA, #16 TAB Prov: ELIF ALEXANDER DO 07/01/20 COVID-19 Assessment COVID-19 Patient Risks: Age 65 or older: No Sign of co-morbidity: No Exp to person + for COVID: No Exp to PUI: No Travel from affected area: No Lower respiratory symptoms: No Fever: No Other: Yes PPE Use: Full PPE with N95 mask or PAPR: Yes ELIF ALEXANDER DO Jul 01, 2020 09:10
[2020-07-01 09:30] LABS: BACTERIA,URINE 0 /HPF (0-FEW); BILIRUBIN,URINE NEG (NEG); CLARITY,URINE CLEAR; COLOR,URINE YELLOW; GLUCOSE,URINE 100 mg/dL (NEG); NITRITE,URINE NEG (NEG); RBC,URINE OCC /HPF (0-2); SQUAMOUS EPITHELIAL CELL,UR OCC /LPF; UROBILINOGEN,URINE 0.2 mg/dL (0.2 mg/dL)
--- NOTE | 2020-07-01 09:38 | RAD ---
CTA CHEST INDICATION: SOA, elevated d-dimer, eval for PE Comparison: Radiograph 07/29/2019. TECHNIQUE: Following the uneventful administration of intravenous contrast, 100 cc Omnipaque 350, axi al CT sections were obtained through the lungs and upper abdomen. Multiplanar reconstructions and MIP images were obtained. RS compliance statement: One or more of the following individualized dose reduction techniques were utilized for this examinat ion: 1. Automated exposure control 2. Adjustment of the mA and/or kV according to patient size 3. Use of iterative reconstruction technique FINDINGS: Pulmonary arteries: No evidence of pulmonary thromboembolic disease. Lungs and Airways: No pulmonary mass or consolidation. No abnormality of the central airways. Pleura: The pleural spaces are normal. Heart and Mediastinum: The visualized thyroid is normal in size and attenuation. No axillary or supra clavicular lymphadenopathy. No mediastinal, hilar or retrocrural lymphadenopathy. Normal cardiac size . Coronary artery stent. No pericardial effusion. Normal caliber thoracic aorta. Abdomen: Cholelithiasis. Bones and Soft Tissues: The visualized bones and chest wall soft tissues are within normal limits. IMPRESSION: 1. No evidence of pulmonary thromboembolic disease. 2. No pulmonary mass or consolidation. Electronically signed by: Theron Saldaña MD (07/01/2020 9:36 AM) [id number]
[2020-07-01 10:15] VITALS: BP 176/96
[2020-07-01] MEDS ORDERED: ONDA4TAB12 PO (10:30)
[2020-07-01] MEDS ORDERED: FAMO-63 PO (10:30)
--- NOTE | 2020-07-01 16:27 | EKG ---
[address] [address] Test Date: 2020-07-01 Test Time: 06:55:12 Pat Name: EMI SAMUEL Department: Room: Gender: M Exercise Teacher: YESICA : 1960 Requested By: ELIF ALEXANDER Order Number: [id number] Reading MD: Measurements Intervals [place] Rate: 87 P: 89 [place]: 164 QRS: 59 QRSD: 80 T: 49 QT: 368 QTc: 443 Interpretive Statements SINUS RHYTHM OTHERWISE NORMAL ECG RI6.02 No previous ECG available for comparison
== END 2020-07-01 10:35 | disposition home or self-care (01) ==
LOC: ER 06:08
DX: R07.2 Precordial pain (principal); E83.42 Hypomagnesemia; E87.6 Hypokalemia; R19.7 Diarrhea, unspecified; R11.0 Nausea; I25.10 Atherosclerotic heart disease of native coronary artery without angina pectoris; E11.9 Type 2 diabetes mellitus without complications; I10 Essential (primary) hypertension; I25.2 Old myocardial infarction; F17.210 Nicotine dependence, cigarettes, uncomplicated; Z20.822 Contact with and (suspected) exposure to COVID-19
CPT/HCPCS: 36415; 71275; 80053; 81001; 82553; 83690; 83735; 83880; 84484; 85025; 85379; 85610; 85730; 87804; 93005; 96361; 96365; 96366; 96375; 99285; C9803; J3475; J3490; J7030; Q9967; U0003

== ENCOUNTER 2021-07-13 06:11 | Emergency (ER) | payer OTHER ==
[~2021-07-13] VITALS: Ht 177.8 cm; Wt 71.8 kg
[~2021-07-13 06:11] MED LIST changes: +FAMO-63 PO; +ONDA4TAB12 PO
--- NOTE | 2021-07-13 06:40 | PHYS DOC ---
Past History Past Medical History: CAD, Depression, Diabetes, High Cholesterol, Heart Disease, Hypertension, [place] Past Surgical History: Other Additional Past Surgical Histo: TUMOR REMOVAL, cardiac stent Smoking: Cigarettes Alcohol Use: Heavy Drug Use: Cocaine, Marijuana, Other Adult General Chief Complaint Chief Complaint: COUGH HPI HPI Patient is a 60-year-old male presenting via POV for cough. States he has had generalized fatigue, muscle aches and cough that has been at baseline for him but constellation of symptoms prompted him to seek primary care evaluation where he was ultimately found to be influenza +8 days ago. He has been taking Tamiflu daily but presents today due to ongoing weakness, fatigue and at times productive cough. States he has numerous comorbid medical issues for which she does not take any medications for. He is a type II diabetic, has not been compliant with prescribed PCP medications. Also reports he has history of CAD with prior OR requiring a stent, has not been taking daily aspirin or other medications such as statin. Reports ongoing heavy alcohol use daily with last drink yesterday evening in addition to cigarette in the marijuana abuse, no other illicit drugs reported. Patient denies any fever, syncope, chest pain, ripping or tearing sensation in chest, abdominal pain, urinary symptoms, or neurologic symptoms. Review of Systems Review of Systems Fourteen body systems of review of systems have been reviewed. See HPI for pertinent positives and negative responses, other peraza all other systems are negative, non-pertinent or non-contributory Allergies Allergies Allergies Uncoded Allergies Type Severity Reaction Last Updated Verified Unknown antibiotic Allergy Unknown 09/17/15 Physical Exam Physical Exam Constitutional: Well developed, well nourished, no acute distress, non-toxic appearance. HENT: Normocephalic, atraumatic, bilateral external ears normal, oropharynx moist, no oral exudates, nose normal. Eyes: PERRLA, EOMI, conjunctiva normal, no discharge. Neck: Normal range of motion, no tenderness, supple, no stridor. Cardiovascular: Heart rate regular, sinus rhythm, no murmurs rubs or gallops Lungs & Thorax: Bilateral breath sounds clear to auscultation Abdomen: Bowel sounds normal, soft, no tenderness, no masses, no pulsatile masses. Nonsurgical abdomen, no peritoneal signs Skin: Warm, dry, no erythema, no rash. Back: No tenderness, no CVA tenderness. Extremities: No tenderness, no cyanosis, no clubbing, ROM intact, no edema. Neurologic: Alert and oriented X 3, grossly normal motor & sensory function, no focal deficits noted. Psychologic: Affect normal, judgement normal, mood normal. Current Patient Data Vital Signs Vital Signs Date Time Temp Pulse Resp B/P (MAP) Pulse Ox O2 Delivery O2 Flow Rate FiO2 07/13/21 06:30 99.0 85 22 157/102 (120) 97 Room Air Vital Signs Date Time Temp Pulse Resp B/P (MAP) Pulse Ox O2 Delivery O2 Flow Rate FiO2 07/13/21 06:30 99.0 85 22 157/102 (120) 97 Room Air Lab Results Laboratory Tests Test 07/13/21 07:06 White Blood Count 5.5 x10^3/uL Red Blood Count 4.79 x10^6/uL Hemoglobin 15.8 g/dL Hematocrit 44.8 % Mean Corpuscular Volume 93 fL Mean Corpuscular Hemoglobin 33 pg Mean Corpuscular Hemoglobin Concent 35 g/dL Red Cell Distribution Width 12.9 % Platelet Count 162 x10^3/uL Neutrophils (%) (Auto) 80 % Lymphocytes (%) (Auto) 6 % Monocytes (%) (Auto) 12 % Eosinophils (%) (Auto) 1 % Basophils (%) (Auto) 1 % Neutrophils # (Auto) 4.4 x10^3uL Lymphocytes # (Auto) 0.3 x10^3/uL Monocytes # (Auto) 0.7 x10^3/uL Eosinophils # (Auto) 0.1 x10^3/uL Basophils # (Auto) 0.0 x10^3/uL Sodium Level 139 mmol/L Potassium Level 4.3 mmol/L Chloride Level 99 mmol/L Carbon Dioxide Level 28 mmol/L Anion Gap 12 Blood Urea Nitrogen 16 mg/dL Creatinine 0.9 mg/dL Estimated GFR (Cockcroft-Gault) 86.1 BUN/Creatinine Ratio 18 Glucose Level 274 mg/dL Calcium Level 8.9 mg/dL Magnesium Level 1.9 mg/dL Total Bilirubin 0.8 mg/dL Aspartate Amino Transf (AST/SGOT) 13 U/L Alanine Aminotransferase (ALT/SGPT) 18 U/L Alkaline Phosphatase 55 U/L Creatine Kinase 61 U/L Creatine Kinase MB (Mass) 1.3 ng/mL Creatine Kinase MB Relative Index % Troponin I High Sensitivity 14 ng/L EM-Avp-S-Type Natriuretic Peptide 73 pg/mL Total Protein 7.3 g/dL Albumin 4.0 g/dL Albumin/Globulin Ratio 1.2 Current Medications Medications (Trade) Dose Ordered Sig/Uzma Route PRN Reason Start Time Stop Time Status Last Admin Dose Admin Aspirin (Aspirin Chewable) 324 mg 1X ONCE PO 07/13/21 07:30 07/13/21 07:31 DC 07/13/21 07:03 EKG EKG EKG ordered and interpreted by myself at 0705 hrs. as sinus rhythm at 76 bpm, unremarkable intervals, no axis deviation, T wave inversion noted in leads II, 3, aVF, V4 through V6, no STEMI EKG obtained July 01, 2020 use for comparison, T wave inversions noted above are new versus prior study Radiology/Procedures Radiology/Procedures XR CHEST 1V Clinical History: Reason: fatigue, cough / Spl. Instructions: / History: Technique: AP view of the chest was obtained at 07/13/2021 6:50 AM. Comparison: July 29, 2019. Findings: The cardiomediastinal silhouette is normal. The pulmonary vasculature is normal. The lungs and pleural margins are clear. Impression: No evidence of an acute cardiopulmonary process. Electronically signed by: Monroe Leon III, MD (07/13/2021 7:10 AM) [facility] Heart Score C/O Chest Pain: No HEART Score for Chest Pain: HEART Score for Chest Pain Response (Comments) Value History Slighlty/Non-Suspicious 0 ECG Nonspecific Repolarizatio 1 Age >45 - < 65 1 Risk Factors >3 Risk Factors or Hx CAD 2 Troponin < Normal Limit 0 Total 4 Risk Factors: Risk Factors: DM, Current or recent (<one month) smoker, HTN, HLP, family history of CAD, obesity. Risk Scores: Risk Factors: DM, Current or recent (<one month) smoker, HTN, HLP, family history of CAD, obesity. Course & Med Decision Making Course & Med Decision Making ABCs unremarkable HPI physical exam and comprehensive ER work-up nonconcerning for any emergent or surgical issues Patient with recent diagnosis of influenza B currently on Tamiflu therapy. Deferred repeat influenza and rapid Covid test today. Continued supportive care advised. This likely the source of patient's presenting symptoms I did disclose patient's numerous comorbid conditions for which she has been noncompliant with all medications. Discussed noncompliance puts him at increased risk for heart disease, stroke etc. I discussed EKG findings today concerning for inferior and lateral wall T wave inversions that were not present on prior exam, patient deferred hospital admission for cardiac observation and further work-up and/or indication as indicated Ultimately patient requesting discharge from ER, he is upset that there is nothing I can do for his influenza B infection or fact that he has ongoing weakness and fatigue without any readily emergent issues He states he has good access to primary care physician and can be seen within upcoming 48 hours for repeat evaluation in outpatient setting. Strict return precautions discussed at length prior to ER departure Dragon Disclaimer Dragon Disclaimer This electronic medical record was generated, in whole or in part, using a voice recognition dictation system. Departure Departure: Impression: Primary Impression: Influenza Additional Impressions: Weakness Fatigue Medical non-compliance Disposition: HOME / SELF CARE / HOMELESS Condition: STABLE Referrals: MONI GOMEZ MD (PCP) Additional Instructions: You were seen for weakness, fatigue and other sequelae from recent influenza infection. Your workup did not show any acute abnormalities today but as disclosed, there were new T wave inversions noted on your EKG that were not pre sent 1 year ago. You do need to follow up with your primary doctor and your garbage stoker for further evaluation and treatment. You should return to the ED if you develop worsening chest pain, shortness of breath, fever, abnormal sweating, leg swelling, or any other new or concerning symptoms. Problem Qualifiers EDGARD OMALLEY DO Jul 13, 2021 06:40
--- NOTE | 2021-07-13 07:06 | EKG ---
[address] [address] Test Date: 2021-07-13 Test Time: 06:59:37 Pat Name: EMI SAMUEL Department: Room: Gender: Vp Of Customer Experience Strategy: KATIE : 1960 Requested By: EDGARD OMALLEY Order Number: [id number] Reading MD: Kumar Reyes Measurements Intervals [place] Rate: 76 P: 65 [place]: 166 QRS: 58 QRSD: 80 T: 22 QT: 380 QTc: 432 Interpretive Statements SINUS RHYTHM T ABNORMALITY IN ANTEROLATERAL LEADS Electronically Signed On 07-13-2021 12:21:45 FIRST COAT OPERATOR by Kumar Reyes
--- NOTE | 2021-07-13 07:12 | RAD ---
XR CHEST 1V Clinical History: Reason: fatigue, cough / Spl. Instructions: / History: Technique: AP view of the chest was obtained at 07/13/2021 6:50 AM. Comparison: July 29, 2019. Findings: The cardiomediastinal silhouette is normal. The pulmonary vasculature is normal. The lungs and pleura l margins are clear. Impression: No evidence of an acute cardiopulmonary process. Electronically signed by: Monroe Leon III, MD (07/13/2021 7:10 AM) [facility]
[2021-07-13] MEDS ORDERED: ASPIRIN CHEWABLE 81 MG TABLET. PO ONE (07:30)
[2021-07-13 07:47] LABS: BASO % 1 % (0-3); EOS # 0.1 x10^3/uL (0.0-0.7); EOS % 1 % (0-3); HEMATOCRIT 44.8 % (39.0-53.0); HEMOGLOBIN 15.8 g/dL (13.0-17.5); LYMPH # 0.3 x10^3/uL (1.0-4.8); LYMPH % 6 % (24-48); MEAN CORPUSCULAR HEMOGLOBIN 33 pg (25-35); MEAN CORPUSCULAR HGB CONC 35 g/dL (31-37); MEAN CORPUSCULAR VOLUME 93 fL (79-100); MONO # 0.7 x10^3/uL (0.0-1.1); MONO % 12 % (0-9); NEUT # 4.4 x10^3uL (1.8-7.7); NEUT % 80 % (31-73); PLATELET COUNT 162 x10^3/uL (140-400); RED BLOOD COUNT 4.79 x10^6/uL (4.30-5.70); RED CELL DISTRIBUTION WIDTH 12.9 % (11.5-14.5); WHITE BLOOD COUNT 5.5 x10^3/uL (4.0-11.0)
[2021-07-13 07:58] LABS: ANION GAP 12 (6-14); BLOOD UREA NITROGEN 16 mg/dL (8-26); BUN/CREATININE RATIO 18 (6-20); CALCIUM 8.9 mg/dL (8.5-10.1); CARBON DIOXIDE 28 mmol/L (21-32); CHLORIDE 99 mmol/L (98-107); CREATININE 0.9 mg/dL (0.7-1.3); GFR 86.1; GLUCOSE 274 mg/dL (70-99); POTASSIUM 4.3 mmol/L (3.5-5.1); SODIUM 139 mmol/L (136-145)
[2021-07-13 08:13] LABS: ALBUMIN/GLOBULIN RATIO 1.2 (1.0-1.7); ALK PHOS 55 U/L (46-116); ALT (SGPT) 18 U/L (16-63); AST (SGOT) 13 U/L (15-37); MAGNESIUM 1.9 mg/dL (1.8-2.4); TOTAL BILIRUBIN 0.8 mg/dL (0.2-1.0); TOTAL PROTEIN 7.3 g/dL (6.4-8.2)
[2021-07-13 08:23] VITALS: BP 160/75
[2021-07-13 09:28] LABS: INFLUENZA A PATIENT NEGATIVE (NEGATIVE); INFLUENZA B PATIENT NEGATIVE (NEGATIVE)
== END 2021-07-13 08:53 | disposition home or self-care (01) ==
LOC: ER 06:11
DX: J11.1 Influenza due to unidentified influenza virus with other respiratory manifestations (principal); R53.1 Weakness; R53.83 Other fatigue; Z91.19 Patient's noncompliance with other medical treatment and regimen; Z20.822 Contact with and (suspected) exposure to COVID-19; E11.9 Type 2 diabetes mellitus without complications; E78.00 Pure hypercholesterolemia, unspecified; I11.9 Hypertensive heart disease without heart failure; I25.2 Old myocardial infarction; I25.10 Atherosclerotic heart disease of native coronary artery without angina pectoris; Z95.5 Presence of coronary angioplasty implant and graft; F17.210 Nicotine dependence, cigarettes, uncomplicated
CPT/HCPCS: 36415; 71045; 80053; 82553; 83735; 83880; 84484; 85025; 87428; 93005; 99285-25

== ENCOUNTER → 2021-10-07 | Outpatient (CLI) | payer OTHER ==
[~2021-10-07] MED LIST changes: +IOHEXOL 300 MG/ML 75 ML VIAL. IV ONE
[2021-10-07 08:37] LABS: CREATININE 1.1 mg/dL (0.7-1.3); GFR 68.1
--- NOTE | 2021-10-07 09:23 | RAD ---
CT abdomen and pelvis without and with contrast Contrast: Precontrast and postcontrast CT imaging with 75 mL Omnipaque 300 intravenous contrast. HISTORY: Gross hematuria. Low pelvic pain and discomfort. PQRS statement: CT scans at this facility use dose reduction including either automated exposure cont rol, iterative reconstructions, and /or weight based radiation dosing via mA and kV modification when appropriate to reduce radiation dose to as low as reasonably achievable. COMPARISON: No priors FINDINGS: No urinary calculi. No hydronephrosis. Bilateral perinephric edema. No abnormal nephrogram. No renal mass. Renal vessels are unremarkable. There is calcified plaque in the aorta and iliac deon sharmila. Gallstone. Liver, pancreas, adrenals, spleen unremarkable. Luminal collapse descending colon di stally to the rectum without surrounding edema. Appendix is normal. No bowel obstruction. No abdomina l fluid or adenopathy. Lower lumbar disc bulges and facet spurring. Lung bases are unremarkable. Pelvis findings: No bladder calculi. No bladder wall thickening or enhancing mass lesion evident. Abs ence of excretion contrast within the bladder limits visualization of bladder masses. There is true r ecurrence of the base of the prostate into the floor of the bladder versus nodular lesion of the urot helium of the floor of the bladder. Rectosigmoid lumen implants with a few scattered diverticuli with out surrounding edema. Mild linear densities of the fat deep to the right inguinal canal perhaps sequ kashif of prior hernia repair. No pelvic fluid or adenopathy. IMPRESSION: 1. Nodularity at the floor of the bladder which appears to be contiguous with the base of the prostat e and may be protrusion of the base of the prostate into the bladder from median lobe hypertrophy fro m nodular hyperplasia. Prostate malignancy extending into the floor of the bladder, or a urothelial t umor arising at the floor of the bladder is not excluded. 2. Other incidental findings as described above. Electronically signed by: Charlie Blair MD (10/07/2021 9:20 AM) [facility]
== END ==
LOC: CT 07:58
PROVIDERS: ATTEND Family Medicine
DX: C61 Malignant neoplasm of prostate (principal); N32.89 Other specified disorders of bladder; R60.0 Localized edema; I70.8 Atherosclerosis of other arteries; K80.80 Other cholelithiasis without obstruction; M51.26 Other intervertebral disc displacement, lumbar region; R31.0 Gross hematuria; M46.06 Spinal enthesopathy, lumbar region
CPT/HCPCS: 36415; 74178; 82565; 84520; Q9967